=== PATIENT | female | born 1995 | race Native Hawaiian/Other Pacific Islander ===

== ENCOUNTER → 2021-11-21 | Outpatient (CLI) | payer BC | LOC: COL.RAD 14:33 | DX: K82.8 Other specified diseases of gallbladder (principal); R59.0 Localized enlarged lymph nodes | CPT/HCPCS: Q9967 ==

== ENCOUNTER → 2022-01-29 | Outpatient (CLI) | payer BC | LOC: COL.RAD 09:29 | DX: Z84.81 Family history of carrier of genetic disease (principal) | CPT/HCPCS: A9575 ==